=== PATIENT | male | born 2000 | race Caucasian/White ===

== ENCOUNTER 2020-10-19 08:30 | Emergency (ER) | payer SELFPAY ==
[~2020-10-19 08:30] MED LIST: KEFLEX500 MG PO
[2020-10-19] MEDS ORDERED: ZOFRAN4 MG PO (10:41)
== END 2020-10-19 10:49 | disposition home or self-care (01) ==
LOC: ER1 08:30
DX: R19.7 Diarrhea, unspecified (principal); F17.200 Nicotine dependence, unspecified, uncomplicated; R11.2 Nausea with vomiting, unspecified; Z20.822 Contact with and (suspected) exposure to COVID-19
CPT/HCPCS: 99284; U0002

== ENCOUNTER 2021-07-31 12:59 | Emergency (ER) | payer OTHER ==
[~2021-07-31 12:59] MED LIST changes: +ZOFRAN4 MG PO
[2021-07-31 14:19] LABS: HEMOGLOBIN 15.3 gm/dl (14.0-17.5); RED BLOOD COUNT 5.51 M/UL (4.20-5.50); WHITE BLOOD COUNT 12.9 K/UL (4.5-11.0)
[2021-07-31 14:44] LABS: BUN/CREATININE RATIO 11 (0-10)
[2021-07-31] MEDS ORDERED: ZITHROMAX250 MG PO (19:53)
[2021-07-31] MEDS ORDERED: CEPHALEXIN500 MG PO (19:54)
== END 2021-07-31 20:00 | disposition home or self-care (01) ==
LOC: ER1 12:59
PROVIDERS: Physician Assistant
DX: R31.9 Hematuria, unspecified (principal); F17.290 Nicotine dependence, other tobacco product, uncomplicated
CPT/HCPCS: 80053; 81001; 83690; 85025; 96372; 99283; J0696